=== PATIENT | male | born 1960 ===

== ENCOUNTER 2016-09-26 19:19 | Emergency (ER) | payer OTHER, SELFPAY ==
[2016-09-26 19:37] VITALS: BP 118/69; PULSE 65; RESP 16; TEMP 98.4; O2SAT 98
[2016-09-26] MEDS ORDERED: Oxycodone/Acetaminophen 5/325 mg Tab PO STA (19:51)
--- NOTE | 2016-09-26 20:06 | ED PDOC ---
Lower Extremity Pain/Injury Time Seen by Provider: 09/26/16 19:30 Chief Complaint (Nursing): Trauma Chief Complaint (Provider): right knee injury History Per: Patient History/Exam Limitations: no limitations Onset/Duration Of Symptoms: Hrs (this morning ) Additional Complaint(s): Guido Smith is a 56 year old male, with a previous medical history of diabetes, chronic hip pain and hypertension, who presents to the ED with complaints of right knee pain after sustaining a fall this morning. Pt reports to falling off the couch and landing on his right knee while it was in the bent position. Pt denies any numbness or tingling. Pt reports being unable to bear weight on the knee. Of note, pt reports to having a chronic hip disease and uneven length of his legs which requires him to walk with the assistance of a cane. PMD: Bigg Perdue MD Past Medical History Vital Signs: Last Vital Signs Temp 98.4 F 09/26/16 19:33 Pulse 65 09/26/16 19:33 Resp 16 09/26/16 19:33 BP 118/69 09/26/16 19:33 Pulse Ox 98 09/26/16 19:33 - Medical History PMH: Diabetes (IDDM), HTN, Hypercholesterolemia Denies: HIV - Surgical History Surgical History: Appendectomy - Family History Family History: States: Unknown Family Hx - Home Medications Home Medications: Ambulatory Orders Medication Instructions Recorded Acetaminophen [Tylenol 325mg tab] 650 mg PO Q6 PRN #0 tab 04/19/15 Amlodipine/Valsartan/Hcthiazid 1 tab PO DAILY #0 tab 04/19/15 [Exforge Hct 5 mg-12.5 mg-160 mg] Carvedilol [Coreg] 1 tab PO BID 04/19/15 Glimepiride [Amaryl] 1 tab PO DAILY 04/19/15 Insulin Glargine,Hum.rec.anlog 60 units SC HS #0 04/19/15 [Lantus] Latanoprost 0.005% Opht [Xalatan 1 drop BOTHEYES HS 04/19/15 Opht] Latanoprost 0.005% Opht [Xalatan 1 drop OU HS #0 bottle 04/19/15 Opht] Omeprazole [Prilosec] 20 mg PO BID 04/19/15 Pioglitazone HCl 1 tab PO DAILY 04/19/15 Simvastatin [Zocor] 1 tab PO HS 04/19/15 Naproxen [Naprosyn Tab] 375 mg PO Q8 PRN #21 tab 09/26/16 oxyCODONE/Acetaminophen [Percocet 1 ea PO Q6 PRN #10 tab 09/26/16 5/325 mg Tab] - Allergies Allergies/Adverse Reactions: Allergies Allergy/AdvReac Type Severity Reaction Status Date / Time No Known Allergies Allergy Verified 04/18/15 20:32 Review of Systems ROS Statement: Except As Marked, All Systems Reviewed And Found Negative Musculoskeletal: Positive for: Leg Pain (right knee pain ) Physical Exam - Reviewed Nursing Documentation Reviewed: Yes Vital Signs Reviewed: Yes - Physical Exam Appears: Positive for: Well, Non-toxic, In Acute Distress (mild painful ) Head Exam: Positive for: ATRAUMATIC, NORMAL INSPECTION, NORMOCEPHALIC Skin: Positive for: Normal Color, Warm, DRY Extremity: Positive for: Normal ROM (able to flex and extend the right knee. able to lift minimally secondary to hip pain ), Capillary Refill (< 2 seconds ) , Other (moderate effusion to the right knee ). Negative for: Calf Tenderness Neurologic/Psych: Positive for: Alert, Oriented - ECG O2 Sat by Pulse Oximetry: 98 (RA) Pulse Ox Interpretation: Normal - Progress ED Course And Treament: xry of hip: no fx; worsening sclerosis of right hip xry of knee: no fx Placed in knee immobilizer and crutches Medical Decision Making Medical Decision Making: Initial Impression: ligament tear, knee injury, chronic hip pain Initial Plan: * x-ray right knee * x-ray right hip * percocet * reevaluation Scribe Attestation: Documented by Shanti Kamara, acting as a scribe for Emmanuel Moody PA-C. Provider Scribe Attestation: All medical record entries made by the Scribe were at my direction and personally dictated by me. I have reviewed the chart and agree that the record accurately reflects my personal performance of the history, physical exam, medical decision making, and the department course for this patient. I have also personally directed, reviewed, and agree with the discharge instructions and disposition. Disposition - Clinical Impression Clinical Impression: Knee injury - Patient ED Disposition Is Patient to be Admitted: No - Disposition Referrals: Jeronimo Worrell MD [Primary Care Provider] - Gayle Chino MD [Staff Provider] - Disposition: Routine/Home Disposition Time: 22:31 Condition: FAIR Prescriptions: Naproxen [Naprosyn Tab] 375 mg PO Q8 PRN #21 tab PRN Reason: Pain, Moderate (4-7) oxyCODONE/Acetaminophen [Percocet 5/325 mg Tab] 1 ea PO Q6 PRN #10 tab PRN Reason: Pain, Severe (8-10) Instructions: Knee Sprain (ED) Forms: [facility] ED School/Work Excuse Print Language: NEPALI
--- NOTE | 2016-09-26 22:24 | RAD ---
EXAM: XR Right Hip With Pelvis When Performed, 2 or 3 Views CLINICAL HISTORY: 56 years old, male; Injury or trauma; Fall; Initial encounter; Blunt trauma (contusions or hematomas); Right; Hip; Additional info: Injury. Sent prior rt hip from 04-18-2015. Sent mri of rt hip 06-06-2015 TECHNIQUE: Two or three views of the right hip, with pelvis when performed. EXAM DATE/TIME: 09/26/2016 7:43 PM COMPARISON: CR - HIP RIGHT 2 VIEW 04/18/2015 10:50:19 PM FINDINGS: Prior plain film May 2015 demonstrated degenerative changes with joint space narrowing. MRI May 2015 demonstrated degenerative changes involving the labrum and bone marrow edema involving the acetabulum and femoral head. Again seen are degenerative changes involving the right hip joint. There is severe joint space narrowing worse than the prior study with extensive sclerosis involving the acetabulum and femoral head. There is suggestion of small cystic changes as well. The femoral head is not dislocated and remains contained within the acetabulum. No acute fractures are identified. Vascular calcifications are again noted. Stool in the right colon and air in the left colon. IMPRESSION: No acute fracture identified. Markedly worsened joint space narrowing and sclerosis of the right hip joint.
--- NOTE | 2016-09-26 22:26 | RAD ---
EXAM: XR Right Knee, 3 views CLINICAL HISTORY: 56 years old, male; Injury or trauma; Fall; Initial encounter; Blunt trauma; Knee; Right; Additional info: Knee injury TECHNIQUE: Three views of the right knee. EXAM DATE/TIME: 09/26/2016 7:50 PM COMPARISON: No relevant prior studies available. FINDINGS: Mild degenerative changes are present. No fractures. No dislocations. No osseous lesions. Vascular calcifications are noted. IMPRESSION: No acute findings.
== END 2016-09-26 22:56 | disposition home or self-care (01) ==
LOC: H.ER 19:19
DX: M25.561 Pain in right knee (principal); M25.559 Pain in unspecified hip; W19.XXXA Unspecified fall, initial encounter; Y92.008 Other place in unspecified non-institutional (private) residence as the place of occurrence of the external cause; E11.9 Type 2 diabetes mellitus without complications; E78.00 Pure hypercholesterolemia, unspecified; I10 Essential (primary) hypertension; Z79.4 Long term (current) use of insulin